=== PATIENT | female | born 1980 | race Caucasian/White ===

== ENCOUNTER 2024-05-30 15:42 | Emergency (ER) | payer OTHER ==
[~2024-05-30] VITALS: Ht 160 cm; Wt 61.2 kg
[2024-05-30] MEDS ORDERED: HYDROCODONE/APAP 5/325MG TABLET ONE (16:28)
[2024-05-30] MEDS: HYDROCODONE/APAP 5/325MG TABLET PO ONE (16:35)
[2024-05-30] MEDS ORDERED: HYDR-3980 PO (17:42)
[2024-05-30 17:49] VITALS: BP 115/70; TEMP 98.5; O2SAT 98
== END 2024-05-30 17:50 | disposition home or self-care (01) ==
LOC: ER 15:42
DX: M25.531 Pain in right wrist (principal); M79.641 Pain in right hand; W18.39XA Other fall on same level, initial encounter; Y93.89 Activity, other specified; Y92.89 Other specified places as the place of occurrence of the external cause; Y99.8 Other external cause status
CPT/HCPCS: 73110; 73130-TC